=== PATIENT | female | born 1955 | race Caucasian/White ===

== ENCOUNTER → 2016-06-24 | Outpatient (CLI) | payer BC ==
[~2016-06-24] MED LIST: ARGI1CAP2 PO; ASPCH81X PO; CHOL1TAB42 PO; DRGTP25 EXT; FLUO40CA8 PO; HYDR-4313 PO; LEVO75TA5 PO; MAGN500T15 PO; OSPE1TAB2 PO; POTA1TAB97 PO; TORS20TA2 PO; TRAZ100T29 PO; VITAMIN B12 IM
[2016-06-24 19:44] LABS: BLOOD UREA NITROGEN 17 mg/dl (7-18); BUN/CREATININE RATIO 16.6 (10-20); CALCIUM 8.7 mg/dl (8.5-10.1); CARBON DIOXIDE 30 mmol/L (21-32); CHLORIDE 103 mmol/L (98-107); GLUCOSE 75 mg/dl (70-99); POTASSIUM 3.9 mmol/L (3.5-5.1); SODIUM 141 mmol/L (136-145)
[2016-06-24 19:56] LABS: THYROID STIMULATING HORMONE 0.468 uIu/ml (0.300-4.500)
== END | disposition home or self-care (01) ==
LOC: C.LABMFLN 10:44
PROVIDERS: ATTEND Family Medicine
DX: R60.9 Edema, unspecified (principal); E03.9 Hypothyroidism, unspecified; I20.9 Angina pectoris, unspecified

== ENCOUNTER → 2016-10-29 | Day surgery (SDC) | payer BC ==
[2016-10-26 10:38] VITALS: Ht 165.1 cm; Wt 68.2 kg
[~2016-10-29] VITALS: Ht 165.1 cm; Wt 68.2 kg
[~2016-10-29] MED LIST changes: +LIDOCAINE HCL 2% 2 ML VIAL (20MG/ML) ONE; +MIDAZOLAM HCL 1 MG/ML 2ML VIAL ONE; +PROPOFOL IV EMULSION 10 MG/ML 20 ML VIAL IV ONE
--- NOTE | 2016-10-29 15:07 | Endo History and Physical ---
History & Physical Date of Service: October 29, 2016. Chief Complaint: COLON ADENOMA Referring Physician: DR CHACON History of Present Illness For colonoscopy Past Surgical History Hx Cardiac Surgery: No Hx Internal Defibrillator: No Hx Pacemaker: No Hx Abdominal Surgery: Yes (PARTIAL HYSER., RT INGUINAL HERNIA, C-SECTIONS X 3, APPY, TUBAL LIGATION) Hx of Implantable Prosthesis: No Hx Post-Op Nausea and Vomiting: No Hx Cancer Surgery: No Hx Thoracic Surgery: No Hx Orthopedic: Yes (C5-7 CERVICAL SPINAL FUSION X 2, RT 4TH FINGER SURGERY) Hx Urinary Tract Surgery: No Family History Polyp Social History Smoking Status: Never Smoker Hx Substance Use: No Hx Alcohol Use: No Allergies Coded Allergies: Adhesives (Verified Allergy, Unknown, HIVES, 10/29/16) Bupropion (Verified Allergy, Unknown, HALLUCINATION, 10/29/16) Nitroglycerin (Verified Allergy, Unknown, HEADACHE AND GOOFINESS, 10/29/16) Current Medications Reported Home Medications Medications Dose Route/Sig Max Daily Dose Days Date Category Trazodone (Trazodone HCl) 100 Mg Tab 2 Tab PO HS 10/26/16 Reported Demadex (Torsemide) 20 Mg Tab 20 Mg PO BID 10/26/16 Reported K-Tab (Potassium Chloride) 20 Meq Tab 1 Tab PO BID 10/26/16 Reported Osphena (Ospemifene) 60 Mg Tab 1 Tab PO QAM 10/26/16 Reported Levothyroxine Sodium 75 Mcg Tab 1 Tab PO QAM 90 10/26/16 Reported Hydrocodone/Acetaminophen 5-325 mg (Acetaminophen/Hydrocodone Bitart) 1 Ea Tab 1-2 Tab PO Q6H PRN 10/26/16 Reported Prozac (Fluoxetine HCl) 40 Mg Cap 40 Mg PO QAM 10/26/16 Reported Fentanyl 25 Mcg Tdsy 1 Dose EXT DIRECTED 10/26/16 Reported Aspirin Chewable (Aspirin) 81 Mg Chew 81 Mg PO QAM 10/26/16 Reported [Vitamin B12] 1,000 Mg IM MONTHLY 10/26/16 Reported Vitamin D (Cholecalciferol) 5,000 Unit Tab 1 Tab PO DAILY AT LUNCH 10/26/16 Reported Magnesium 500 Mg Tab 1 Tab PO DAILY AT LUNCH 10/26/16 Reported L-Arginine (Arginine) 500 Mg Cap 1 Cap PO TID 10/26/16 Reported Vital Signs Weight (Kilograms): 68.18 Height (Feet): 5 Height (Inches): 5 Date Time Temp Pulse Resp B/P Pulse Ox O2 Delivery O2 Flow Rate FiO2 10/29/16 14:06 37.0 91 20 134/60 96 Room Air Physical Exam General Appearance: WD/WN Respiratory/Chest: Respiratory effort: no dyspnea Cardiovascular: Heart Auscultation: RRR Abdomen: Inspection & Palpation: soft Assessment and Plan Hx of polyps for colonoscopy
--- NOTE | 2016-10-29 15:31 | Discharge Instructions ---
Endoscopy Patient Instructions Date / Procedure(s) Performed October 29, 2016. Colonoscopy Allergy Information Coded Allergies: Adhesives (Verified Allergy, Unknown, HIVES, 10/29/16) Bupropion (Verified Allergy, Unknown, HALLUCINATION, 10/29/16) Nitroglycerin (Verified Allergy, Unknown, HEADACHE AND GOOFINESS, 10/29/16) Discharge Date / Findings October 29, 2016. Diverticulosis, hemorrhoids Medication Instructions Stopped Medication(s): ASPIRIN 81MG 10/25/16 Restart Stopped Medication(s): resume meds Reported Home Medications Medications Dose Route/Sig Max Daily Dose Days Date Category Trazodone (Trazodone HCl) 100 Mg Tab 2 Tab PO HS 10/26/16 Reported Demadex (Torsemide) 20 Mg Tab 20 Mg PO BID 10/26/16 Reported K-Tab (Potassium Chloride) 20 Meq Tab 1 Tab PO BID 10/26/16 Reported Osphena (Ospemifene) 60 Mg Tab 1 Tab PO QAM 10/26/16 Reported Levothyroxine Sodium 75 Mcg Tab 1 Tab PO QAM 90 10/26/16 Reported Hydrocodone/Acetaminophen 5-325 mg (Acetaminophen/Hydrocodone Bitart) 1 Ea Tab 1-2 Tab PO Q6H PRN 10/26/16 Reported Prozac (Fluoxetine HCl) 40 Mg Cap 40 Mg PO QAM 10/26/16 Reported Fentanyl 25 Mcg Tdsy 1 Dose EXT DIRECTED 10/26/16 Reported Aspirin Chewable (Aspirin) 81 Mg Chew 81 Mg PO QAM 10/26/16 Reported [Vitamin B12] 1,000 Mg IM MONTHLY 10/26/16 Reported Vitamin D (Cholecalciferol) 5,000 Unit Tab 1 Tab PO DAILY AT LUNCH 10/26/16 Reported Magnesium 500 Mg Tab 1 Tab PO DAILY AT LUNCH 10/26/16 Reported L-Arginine (Arginine) 500 Mg Cap 1 Cap PO TID 10/26/16 Reported Provider Instructions Activity Restrictions - No exercising or heavy lifting for 24 hours. - Do not drink alcohol the day of the procedure. - Do not drive a car or operate machinery until the day after the procedure. - Do not make any important decisions or sign important papers in 24 hours after the procedure. Following Day: - Return to full activity which may include returning to work/school. Diet Start your diet with liquids and light foods (jello, soup, juice, toast). Then eat your usual diet if not nauseated. Treatment For Common After Affects For mild abdominal pain, bloating, or excessive gas: - Rest - Eat lightly - Lie on right side Follow-Up Information Follow-up with DR CHACON as scheduled Anesthesia Information What You Should Know You have had a procedure that required some medicine to reduce anxiety and discomfort. This treatment is called moderate sedation. After receiving the treatment, you may be sleepy, but you will be able to breathe on your own. The effects of the treatment may last for several hours. Follow these instructions along with Activity/Diet recommendations noted above: * Do NOT do anything where dizziness or clumsiness would be dangerous. * Rest quietly at home today, then you can be up and about tomorrow. * Have a responsible person stay with you the rest of today. * You may have had an I.V. today. If so, you may take the dressing off later today. Recommendations Call your doctor if: * Trouble breathing * Continuous vomiting for more than 24 hours * Temperature above 101 degrees * Severe abdominal pain or bloating * Pain not relieved by pain medicine ordered * There is increased drainage or redness from any incision * A large amount of rectal bleeding greater than 2-3 tablespoons. (If you had a polyp/s removed or have hemorrhoids, a small amount of blood - from the rectum is to be expected.) * You have any unanswered questions or concerns. IN THE EVENT OF A SERIOUS EMERGENCY, GO TO THE NEAREST EMERGENCY ROOM Your discharge instructions were prepared by provider Hank Alejo. Patient Instructions Signature Page Cadence De Luna Patient (or Guardian) Signature/Date: I have read and understand the instructions given to me by my caregivers. Caregiver/RN/Doctor Signature/Date: The above-named patient and/or guardian has received patient instructions on this date. + Original Patient Signature Page (only) stays with chart. Please make copy for patient.
--- NOTE | 2016-10-29 15:34 | GI REPORT ---
Procedure Date: 10/29/2016 3:06 PM Procedure: Colonoscopy Indications: Personal history of colonic polyps Medicines: Midazolam 2 mg IV, Propofol total dose 180 mg IV, Lidocaine 40 mg IV Complications: No immediate complications. Estimated Blood Loss: Estimated blood loss: none. Procedure: Pre-Anesthesia Assessment: - Prior to the procedure, a History and Physical was performed, and patient medications, allergies and sensitivities were reviewed. The patient's tolerance of previous anesthesia was reviewed. - The risks and benefits of the procedure and the sedation options and risks were discussed with the patient. All questions were answered and informed consent was obtained. After I obtained informed consent, the scope was passed under direct vision. Throughout the procedure, the patient's blood pressure, pulse, and oxygen saturations were monitored continuously. The Scope was introduced through the anus and advanced to the cecum, identified by appendiceal orifice and ileocecal valve. The colonoscopy was performed without difficulty. The patient tolerated the procedure well. The quality of the bowel preparation was fair. Findings: A few diverticula were found in the sigmoid colon. Non-bleeding internal hemorrhoids were found during endoscopy. The hemorrhoids were mild. Impression: - Diverticulosis in the sigmoid colon. - Non-bleeding internal hemorrhoids. - No specimens collected. Recommendation: - Repeat colonoscopy in 5 years for surveillance. - Return to primary care physician PRN. Hank Alejo M.D. Hank Alejo MD 10/29/2016 3:33:52 PM This report has been signed electronically. Note Initiated On: 10/29/2016 3:06 PM I attest to the content of the Intraoperative Record and orders documented therein, exceptions below
--- NOTE | 2016-10-29 15:44 | Anesthesiology Progress Note ---
Anesthesia Post Op Note Date & Time October 29, 2016 at 15:44 Vital Signs Pain Intensity: 0 Vital Signs Past 12 Hours Date Time Temp Pulse Resp B/P Pulse Ox O2 Delivery O2 Flow Rate FiO2 10/29/16 15:37 74 20 102/43 94 Room Air 10/29/16 14:06 37.0 91 20 134/60 96 Room Air Notes Mental Status: alert / awake / arousable, participated in evaluation Pt Amnestic to Procedure: Yes Nausea / Vomiting: adequately controlled Pain: adequately controlled Airway Patency, RR, SpO2: stable & adequate BP & HR: stable & adequate Hydration State: stable & adequate Anesthetic Complications: no major complications apparent
[2016-10-29 16:07] VITALS: BP 102/54; PULSE 58; O2SAT 96
== END | disposition home or self-care (01) ==
LOC: C.GI 13:38
PROVIDERS: ATTEND Internal Medicine Gastroenterology
DX: Z86.010 Personal history of colon polyps (principal); K57.30 Diverticulosis of large intestine without perforation or abscess without bleeding; K64.8 Other hemorrhoids; Z90.710 Acquired absence of both cervix and uterus; Z79.82 Long term (current) use of aspirin

== ENCOUNTER → 2017-04-04 | Outpatient (CLI) | payer BC ==
[~2017-04-04] MED LIST changes: -LIDOCAINE HCL 2% 2 ML VIAL (20MG/ML) ONE; -MIDAZOLAM HCL 1 MG/ML 2ML VIAL ONE; -PROPOFOL IV EMULSION 10 MG/ML 20 ML VIAL IV ONE
[2017-04-04 13:06] LABS: BASO % 0.3 %; BASO ABS # 0.01 K/uL (0-0.2); COMPLETE YES; EOS % 1.1 %; HEMATOCRIT 39.2 % (37-47); IG% 0.3 %; LYMPH % 43.6 %; LYMPH ABS # 1.56 K/uL (1.2-3.4); MEAN CELL VOLUME 85.8 fL (80-100); MEAN CORPUSCULAR HGB CONC 32.7 g/dl (32-36); MEAN PLATELET VOLUME 9.6 fL (7.4-10.4); MONO % 7.8 %; NEUT % 46.9 %; PLATELET COUNT 204 K/uL (130-400); RED BLOOD COUNT 4.57 M/uL (4.2-5.4); WHITE BLOOD COUNT 3.58 K/uL (4.8-10.8)
[2017-04-04 13:26] LABS: ALT/SGPT 25 U/L (12-78); AMYLASE 64 U/L (25-115); AST/SGOT 17 U/L (15-37); BLOOD UREA NITROGEN 15 mg/dl (7-18); CALCIUM 9.1 mg/dl (8.5-10.1); CARBON DIOXIDE 31 mmol/L (21-32); CHLORIDE 106 mmol/L (98-107); CREATININE 1.08 mg/dl (0.60-1.20); GLUCOSE 85 mg/dl (70-99); HDL CHOLESTEROL 75 mg/dl; POTASSIUM 4.3 mmol/L (3.5-5.1); SODIUM 143 mmol/L (136-145)
[2017-04-04 13:34] LABS: ALB/GLOB RATIO 1.3 (0.9-2); ALKALINE PHOSPHATASE 57 U/L (45-117); CHOLESTEROL 205 mg/dl (0-200); CHOLESTEROL/HDL RATIO 2.7; LDL CHOLESTEROL CALCULATED 117 mg/dl; THYROID STIMULATING HORMONE 0.342 uIu/ml (0.300-4.500); TRIGLYCERIDES 63 mg/dl (0-150); VERY LOW DENSITY LIPOPROT CALC 13 mg/dl
== END | disposition home or self-care (01) ==
LOC: C.LABMFLN 09:10
PROVIDERS: ATTEND Family Medicine
DX: I20.9 Angina pectoris, unspecified (principal); I10 Essential (primary) hypertension; E78.5 Hyperlipidemia, unspecified; R11.0 Nausea; E03.9 Hypothyroidism, unspecified; R53.83 Other fatigue

== ENCOUNTER → 2017-04-18 | Outpatient (CLI) | payer BC | END | disposition home or self-care (01) | LOC: C.LABMFLN 09:59 | PROVIDERS: ATTEND Family Medicine | DX: R30.0 Dysuria (principal) ==